=== PATIENT | female | born 1960 | race Caucasian/White ===

== ENCOUNTER 2017-05-30 20:16 | Emergency (ER) | payer BC ==
--- NOTE | 2017-05-30 21:12 | EDM.PDOC ---
ED HPI GENERAL MEDICAL PROBLEM - General Chief Complaint: [employer] Problem Stated Complaint: vaginal pain Time Seen by Provider: 05/30/17 20:34 Source of Information: Reports: Patient History Limitations: Reports: No Limitations - History of Present Illness INITIAL COMMENTS - FREE TEXT/NARRATIVE: Lori is a 57 year old female who presents to the ED with complaints of pelvic pain for the past few weeks. She reports she has been seen by two providers here and one in [place]. She has had a CT of her abdomen/pelvis, renal US, and lab work which were all relatively normal. She reports she is currently being treated for a "bacterial vaginal infection." She reports she has been taking Flagyl, without resolution of her symptoms. She reports she had a vaginal sample taken in [place], for which the results cannot be seen, that showed the bacterial infection. She reports pelvic pain in a "T shape" area suprapubically. This pain has been the same type of pain since onset of symptoms. She reports she has been taking Tylenol and ibuprofen, but this does not seem to control the pain. At times it provides her some relief, but today it hasn't. She is concerned that she has continued bacterial infection that is not being properly treated. She reports she is postmenopausal. She has a referral in for OBGYN and is scheduled to see Dr. Momin on June 08 for questionable endometriosis. She denies any dysuria, frequency, urgency. Denies any vaginal itching or burning. Denies any abnormal vaginal discharge. She has not been sexually active recently. Denies any fever or chills. Onset Date: 05/08/17 Duration: Constant Location: Reports: Pelvis Quality: Reports: Ache Severity: Moderate Improves with: Reports: Medication Worsens with: Reports: None Associated Symptoms: Reports: No Other Symptoms. 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: 3 PILLS LEFT OF FLAGYL PRESCRIPTION VAGINAL Pain Score (Numeric/FACES): 5 - Related Data Allergies Allergy/AdvReac Type Severity Reaction Status Date / Time cephalexin Allergy Redness Verified 05/30/17 20:23 fluconazole [From Diflucan] Allergy Redness Verified 05/30/17 20:23 gentamicin Allergy Redness Verified 05/30/17 20:23 Penicillins Allergy Hives Verified 05/30/17 20:23 sulfamethoxazole Allergy Headache Verified 05/30/17 20:23 [From Bactrim] trimethoprim [From Bactrim] Allergy Headache Verified 05/30/17 20:23 Home Meds: Home Meds Levothyroxine [Synthroid] 200 mcg PO DAILY 05/30/17 [History] Social & Family History - Tobacco Use Smoking Status *Q: Never Smoker Second Hand Smoke Exposure: No - Recreational Drug Use Recreational Drug Use: No ED ROS GENERAL - Review of Systems Review Of Systems: ROS reveals no pertinent complaints other than HPI. Constitutional: Reports: No Symptoms. Denies: Fever, Chills, Weakness, Fatigue , Decreased Appetite Respiratory: Reports: No Symptoms Cardiovascular: Reports: No Symptoms GI/Abdominal: Reports: No Symptoms, Abdominal Pain, Decreased Appetite. Denies : Anorexia, Black Stool, Bloody Stool, Constipation, Diarrhea, Difficulty Swallowing, Distension, Flatus, Hematemesis, Hematochezia, Melena, Mucous in Stool, Nausea, Stool Incontinence, Vomiting : Reports: Pain (suprapubic/pelvic pain). Denies: Discharge, Dysuria, Flank Pain, Frequency, Hematuria, Incontinence, Irregular Menses, Urgency, Urinary Retention ED EXAM, RENAL/ - Physical Exam Exam: See Below Exam Limited By: No Limitations General Appearance: Alert, WD/WN, No Apparent Distress Head: Atraumatic, Normocephalic Neck: Normal Inspection, Supple, Non-Tender, Full Range of Motion Respiratory/Chest: No Respiratory Distress, Lungs Clear, Normal Breath Sounds, No Accessory Muscle Use, Chest Non-Tender Cardiovascular: Normal Peripheral Pulses, Regular Rate, Rhythm, No Edema, No Gallop, No JVD, No Murmur, No Rub GI/Abdominal: Normal Bowel Sounds, Soft, Non-Tender, No Organomegaly, No Distention, No Abnormal Bruit, No Mass (Female) Exam: Normal External Exam, Vaginal Discharge. No: Vaginal Lesions , Vaginal Tears Rectal (Female) Exam: Normal Exam Back Exam: Normal Inspection, Full Range of Motion. No: CVA Tenderness (L), CVA Tenderness (R) Neurological: Alert, Oriented, CN II-XII Intact, Normal Cognition, Normal Gait, Normal Reflexes, No Motor/Sensory Deficits Psychiatric: Normal Affect, Normal Mood Skin Exam: Warm, Dry, Intact, Normal Color, No Rash Course - Vital Signs Last Recorded V/S: Last Vital Signs Temp 97.1 F 05/30/17 20:23 Pulse 66 05/30/17 20:23 Resp 20 05/30/17 20:23 BP 143/85 H 05/30/17 20:23 Pulse Ox 99 05/30/17 20:23 - Orders/Labs/Meds Labs: Laboratory Tests 05/30/17 Range/Units 21:00 Urine Color Light yellow (YELLOW) Urine Appearance Clear (CLEAR) Urine pH 5.5 (4.5-8.0) Ur Specific [place] 1.010 (1.003-1.020) Urine Protein Negative (NEGATIVE) mg/dL Urine Glucose (UA) Negative (NEGATIVE) mg/dL Urine Ketones Negative (NEGATIVE) mg/dL Urine Occult Blood Small H (NEGATIVE) Urine Nitrite Negative (NEGATIVE) Urine Bilirubin Negative (NEGATIVE) Urine Urobilinogen 0.2 (0.2-1.0) EU/dL Ur Leukocyte Esterase Negative (NEGATIVE) Urine RBC 0-5 (0-5) /HPF Urine WBC Not seen (0-5) /HPF Ur Epithelial Cells Occasional H (NOT SEEN) /HPF Meds: Medications Discontinued Medications Generic Name Dose Route Start Last Admin Trade Name Niya PRN Reason Stop Dose Admin Tramadol HCl 1 packet 05/30/17 21:19 Take Home: Tramadol 50 Mg, 4 Tab Pack PO 05/30/17 21:20 ONETIME ONE - Re-Assessments/Exams Free Text/Narrative Re-Assessment/Exam: Discussed lab results with patient and spouse. PLEASE SEE NURSES NOTE FOR PMH, PSH, SH, & FH. Departure - Departure Time of Disposition: 21:29 Disposition: Home, Self-Care 01 Condition: Good Clinical Impression: Pelvic pain in female Vaginitis Qualifiers: Chronicity: acute Qualified Code(s): N76.0 - Acute vaginitis - Discharge Information Instructions: Endometriosis, Pelvic Pain, Female, Bacterial Vaginosis, Easy-to- Read Referrals: Rafael Padilla MD [Primary Care Provider] - Forms: ED Department Discharge Additional Instructions: Follow up with OBGYN as scheduled Continue Flagyl as prescribed Take a warm bath and apply heat to area of discomfort Previously prescribed Tramadol as needed for pain not releaved by Tylenol and Ibuprofen Return to ER for any emergent concerns
[2017-05-30] MEDS ORDERED: Take Home: traMADol 50 MG, 4 Tab Pack PO ONE (21:19)
== END 2017-05-30 22:35 | disposition home or self-care (01) ==
LOC: CC.ED 20:16
DX: N76.0 Acute vaginitis (principal); R10.2 Pelvic and perineal pain
CPT/HCPCS: 81001; 87210; 99283